=== PATIENT | male | born 1960 | race Caucasian/White ===

== ENCOUNTER 2019-06-23 00:07 | Day surgery (SDC) | payer OTHER, SELFPAY ==
[2019-06-22 09:00] VITALS: BMI 34.3
--- NOTE | 2019-06-23 07:18 | WPDANESEPPF ---
Anes - Initial Pre Proc Eval Procedure: Operation Date: 06/23/19 08:30 Proposed Procedures p Screening Colonoscopy - Edward Castillo MD Date/Time: 06/23/19 07:18 Surgeon: Edward Castillo MD Pre Op Diagnosis: Neoplasm Screening Patient Data Age: 59 Gender: M Height: 5 ft 11 in Weight: 111.8 kg Allergies Allergy/AdvReac Type Severity Reaction Status Date / Time poison jordi extract Allergy RASH Verified 06/23/19 07:17 Home Medications Medication Instructions Recorded Confirmed Type aspirin 81 mg tablet,delayed 81 mg PO DAILY 05/07/19 06/22/19 History release atorvastatin 20 mg tablet 20 mg PO DAILY 05/07/19 06/22/19 History irbesartan 150 mg tablet 150 mg PO DAILY #90 tablet 05/07/19 06/22/19 Rx sildenafil 100 mg tablet See Rx Instructions PO DAILY PRN 05/07/19 06/22/19 History cholecalciferol (vitamin D3) 25 mcg PO DAILY 06/22/19 06/22/19 History [Vitamin D3] lactobacillus combination no.8 3,000 mmu cells PO DAILY 06/22/19 06/22/19 History [Adult Probiotic] mecobalamin (vitamin B12) 1,000 mcg PO DAILY 06/22/19 06/22/19 History Patient hx anesthesia problems: none Family hx anesthesia problems: none PMFSH Past Medical History Medical History Coronary artery calcification seen on CAT scan Elbow dislocation (~1981) Encounter for prostate cancer screening Encounter for wellness examination in adult Essential (primary) hypertension Hypertension Male erectile dysfunction, unspecified Mixed hyperlipidemia Plantar wart, right foot Polyp of colon Vitamin B12 deficiency anemia Family History Family History Mother , 76 years old Cancer Father , 96 years old Heart disease Grandparent , 88 years old No problems noted. Grandparent , 84 years old Cancer Grandparent , 80 years old No problems noted. Grandparent , 58 years old Heart disease Sibling , 73 years old Cancer Social History Social History Smoking status: Never smoker Alcohol intake: current Substance use: never Substance use type: does not use Anes - Eval Final PreProcedure Day of Procedure 06/23/19 07:18 Patient weight: obese Heart: regular rate and rhythm Lungs: clear to auscultation Airway: Mallampati scale class II Neurological: alert and oriented Last oral intake: >/= 8 hours ASA classification: III Emergent: no Anesthetic plan: proceed Anesthesia type and monitoring: general GIVS and standard monitoring Informed Consent: The patient's anesthetic plan and its attendant risks and benefits were discussed with the patient/family/POA. Questions were solicited and answers provided to the satisfaction of the patient/family/POA.
[2019-06-23 07:19] VITALS: BP 153/83; PULSE 71; RESP 16; TEMP 36.5; O2SAT 98
[2019-06-23] MEDS: LACTATED RINGERS 1,000 ML 150 ML IV CONT (07:25)
--- NOTE | 2019-06-23 08:29 | PM.HPGS ---
History of Present Illness History of Present Illness Consent: Risks, benefits, and alternatives have been discussed and questions answered. Patient agrees to proceed with procedure. Chief complaint: Neoplasm Screening Narrative: Pavel Leung is a 59 year old male for screening colonoscopy, 5 years ago had polyps Review of Systems Constitutional: Constitutional: Denies headache(s) and Denies weakness Eyes: Eyes: Denies blurry vision ENT: Reports Normal hearing present, Denies headache(s) and Denies neck pain Cardiovascular: Cardiovascular: Denies chest pain and Denies dyspnea Respiratory: Respiratory: Denies dyspnea Gastrointestinal: Gastrointestinal: Reports no additional gastrointestinal complaints Genitourinary: Genitourinary: Denies dysuria Musculoskeletal: Musculoskeletal: Denies neck pain Integumentary/Breasts: Skin/Breast: Denies dry skin Neurologic: Reports Normal hearing present, Denies headache(s) and Denies weakness Psychiatric: Psychiatric: Denies anxiety Endocrine: Endocrine: Denies change in body appearance Hematologic/Lymphatic: Hematologic/Lymphatic: Denies easy bleeding Allergic/Immunologic: Allergic/Immunologic: Denies urticaria PMFSH Past Medical History Medical History Coronary artery calcification seen on CAT scan Elbow dislocation (~1981) Encounter for prostate cancer screening Encounter for wellness examination in adult Essential (primary) hypertension Hypertension Male erectile dysfunction, unspecified Mixed hyperlipidemia Plantar wart, right foot Polyp of colon Vitamin B12 deficiency anemia Family History Family History Mother , 76 years old Cancer Father , 96 years old Heart disease Grandparent , 88 years old No problems noted. Grandparent , 84 years old Cancer Grandparent , 80 years old No problems noted. Grandparent , 58 years old Heart disease Sibling , 73 years old Cancer Social History Social History Smoking status: Never smoker Alcohol intake: current Substance use: never Substance use type: does not use Meds Home Medications and Allergies Home Medications Medication Instructions Recorded Confirmed Type aspirin 81 mg tablet,delayed 81 mg PO DAILY 05/07/19 06/23/19 History release atorvastatin 20 mg tablet 20 mg PO DAILY 05/07/19 06/23/19 History irbesartan 150 mg tablet 150 mg PO DAILY #90 tablet 05/07/19 06/23/19 Rx sildenafil 100 mg tablet See Rx Instructions PO DAILY PRN 05/07/19 06/23/19 History cholecalciferol (vitamin D3) 25 mcg PO DAILY 06/22/19 06/23/19 History [Vitamin D3] lactobacillus combination no.8 3,000 mmu cells PO DAILY 06/22/19 06/23/19 History [Adult Probiotic] mecobalamin (vitamin B12) 1,000 mcg PO DAILY 06/22/19 06/23/19 History Allergies Allergy/AdvReac Type Severity Reaction Status Date / Time poison jordi extract Allergy RASH Verified 06/23/19 07:17 Vital Signs Vital Signs - 24 hr 06/23/19 07:19 Temperature 97.7 F Pulse Rate 71 Respiratory Rate 16 Blood Pressure 153/83 H Pulse Oximetry 98 Exam Const: General: comfortable and no acute distress HENMT: General nose exam: Normal nares present Eyes: General: appearance normal, both eyes and all related structures Neck: Neck: no JVD Resp: Auscultation: clear to auscultation bilaterally Cardio: Rate: regular rate Rhythm: regular rhythm GI: Inspection: non-distended GI Palp: Yes Soft to palpation Skin: General skin exam: normal color Neuro: General: gait normal Speech: normal speech Extrem: General: normal to inspection Psych: Mental Status: mental status grossly normal Assessment and Plan Assessment and plan (1) Polyp of colon: Code(s): K63.5 -
[2019-06-23 09:08] VITALS: BP 100/58; PULSE 60; RESP 18; O2SAT 98
[2019-06-23 09:18] VITALS: BP 122/62; PULSE 59; RESP 22; O2SAT 100
[2019-06-23 09:28] VITALS: BP 122/74; PULSE 56; RESP 20; O2SAT 100
== END 2019-06-23 09:40 | disposition home or self-care (01) ==
PROVIDERS: PCP Family Medicine; Visit Provider Internal Medicine Gastroenterology
PROC: 0DJD8ZZ Inspection of Lower Intestinal Tract, Via Natural or Artificial Opening Endoscopic (ICD-10-PCS; CPT 45378; principal; 2019-06-23 08:30)
DX: Z12.11 Encounter for screening for malignant neoplasm of colon (principal); K63.5 Polyp of colon; K64.8 Other hemorrhoids; I10 Essential (primary) hypertension; E78.5 Hyperlipidemia, unspecified; D51.3 Other dietary vitamin B12 deficiency anemia; N52.9 Male erectile dysfunction, unspecified; Z79.82 Long term (current) use of aspirin; E66.9 Obesity, unspecified; Z68.34 Body mass index [BMI] 34.0-34.9, adult
CPT/HCPCS: 45385; 45381; 88305; J2704; J7120

== ENCOUNTER 2020-02-24 07:30 | Outpatient (RCR) | payer OTHER, SELFPAY ==
[2020-01-22 15:25] VITALS: BP 142/62; PULSE 60; RESP 14; TEMP 36.7; O2SAT 99
[2020-01-22 15:26] VITALS: PULSE 60
--- NOTE | 2020-02-03 09:18 | PCCPR ---
Absent-OOT for work
--- NOTE | 2020-02-25 07:49 | PCCPR ---
Rocio Ricardo called states unable to make it today due to work.
--- NOTE | 2020-03-02 11:23 | PCCPR ---
Spoke with Pavel this morning. He had a doctors appt yesterday and patient states Dr. Joyce has ok'd him to go ahead and discharge from the program and continue exercise at home.
== END 2020-03-02 11:26 | disposition home or self-care (01) ==
LOC: ANHCPREHAB 07:30
PROVIDERS: PCP Family Medicine; Visit Provider Internal Medicine Cardiovascular Disease
DX: Z95.5 Presence of coronary angioplasty implant and graft (principal)
CPT/HCPCS: 93798

== ENCOUNTER → 2020-10-31 11:18 | Outpatient (CLI) | payer OTHER, SELFPAY ==
--- NOTE | ~2020-10-31 | XR_ITS ---
XR elbow RT min 3V DATE: 10/31/2020 11:35 INDICATION: Right elbow pain TECHNIQUE: 4 views COMPARISON: None FINDINGS: Posterior soft tissue swelling is noted. Chronic bony ossicles are noted along the medial e picondyles. No recent fracture or dislocation or joint effusion. No periosteal reaction or bone destruction. IMPRESSION: Posterior soft tissue swelling; no acute bony abnormality or joint effusion Reviewed, dictated and finalized at location A.
== END ==
PROVIDERS: PCP Nurse Practitioner Family; Visit Provider Nurse Practitioner Family
DX: M25.521 Pain in right elbow (principal); M79.89 Other specified soft tissue disorders
CPT/HCPCS: 73080

== ENCOUNTER 2022-10-01 07:06 | Day surgery (SDC) | payer OTHER, SELFPAY ==
[2022-09-11 09:39] VITALS: BMI 36.5
[2022-09-14 11:15] VITALS: BMI 33.5
--- NOTE | 2022-10-01 06:56 | WPDANESEPPF ---
Anes - Initial Pre Proc Eval Procedure: Operation Date: 10/01/22 09:00 Proposed Procedures p Diagnostic Colonoscopy - Edward Castillo MD Date/Time: 10/01/22 06:56 Surgeon: Edward Castillo MD Pre Op Diagnosis: Colon Polyp Patient Data Age: 62 Gender: M Height: 1.8 m Weight: 109 kg Allergies Allergy/AdvReac Type Severity Reaction Status Date / Time No Known Allergies Allergy Verified 10/01/22 10:18 Home Medications Medication Instructions Recorded Confirmed Type aspirin 81 mg tablet,delayed 81 mg PO DAILY 05/07/19 10/01/22 History release (Adult Low Dose Aspirin) lactobacillus combination no.8 3 3,000 mmu cells PO DAILY 06/22/19 10/01/22 History billion cell capsule (Adult Probiotic) cholecalciferol (vitamin D3) 25 1,000 unit PO DAILY 05/12/20 10/01/22 History mcg (1,000 unit) capsule (Vitamin D3) ezetimibe 10 mg tablet 10 mg PO DAILY 05/12/20 10/01/22 History irbesartan 300 mg tablet 300 mg PO DAILY 05/12/20 10/01/22 History metoprolol succinate 25 mg 25 mg PO DAILY 05/12/20 10/01/22 History tablet,extended release 24 hr rosuvastatin 40 mg tablet 40 mg PO DAILY 05/12/20 10/01/22 History clopidogrel 75 mg tablet 75 mg PO DAILY 07/31/22 10/01/22 History fluticasone propionate 50 1 spray intranasal Q12H #16 grams 07/31/22 10/01/22 Rx mcg/actuation nasal spray,suspension (Flonase Allergy Relief) sildenafil 100 mg tablet See Rx Instructions PO DAILY PRN 09/24/22 10/01/22 Rx Erectile Dysfunction #30 tabs Patient hx anesthesia problems: none Family hx anesthesia problems: none Results Review: All pre-operative results and documents have been reviewed as part of the pre-operative evaluation. 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 BMI 35.0-35.9,adult Candidiasis Chronic left shoulder pain Coronary artery calcification seen on CAT scan COVID-19 (~03/29/20) positive antibody test 05/16/2020 Elbow dislocation (~1981) Encounter for prostate cancer screening Encounter for screening for other viral diseases Encounter for wellness examination in adult Essential (primary) hypertension Eustachian tube dysfunction Herpes zoster (08/03/21) right T1 dermatome Hypertension Hypogonadism male Male erectile dysfunction, unspecified Mixed hyperlipidemia Obesity (BMI 30-39.9) Olecranon bursitis, right elbow Plantar wart, right foot Polyp of colon (06/23/19) 12 x 15 mm sessile serrated polyp of the cecum on 06/23/[address] Chavez Vitamin B12 deficiency anemia Vitamin D insufficiency Family History Family History Mother , 76 years old Cancer Father , 96 years old Heart disease Hypertension Grandparent , 88 years old No problems noted. Grandparent , 84 years old Cancer Grandparent , 80 years old No problems noted. Grandparent , 58 years old Heart disease Sibling , 73 years old Cancer Social History Social History Smoking status: Never smoker Alcohol intake: current Drinks per week: 3 Alcohol use details: varies Substance use: never Substance use type: does not use Lack of Transportation: No Lack of Food: Never True Current Housing: I Have Housing Concerned About Future Housing: No Difficulty Paying Gas/Electric Bills: No Difficulty Paying for Meds: No Currently Unemployed: No Education: Bachelor's Degree Difficulty w/ Childcare or Family Care: No Living arrangements: with family Occupation/Education: occupation Additional occupation/education comments: [employer]
[2022-10-01 10:19] VITALS: BP 135/81; PULSE 68; RESP 20; TEMP 36.6; O2SAT 99
[2022-10-01] MEDS: LACTATED RINGERS 1,000 ML 150 ML IV CONT (10:36)
--- NOTE | 2022-10-01 10:37 | PM.HPGS ---
History of Present Illness History of Present Illness Consent: Risks, benefits, and alternatives have been discussed and questions answered. Patient agrees to proceed with procedure. Chief complaint: Colon Polyp Narrative: Pavel Leung is a 62 year old male with large polyp removed in 2019 Review of Systems Constitutional: Constitutional: Denies headache(s) and Denies weakness Eyes: Eyes: Denies blurry vision ENT: Reports Normal hearing present, Denies headache(s) and Denies neck pain Cardiovascular: Cardiovascular: Denies chest pain and Denies dyspnea Respiratory: Respiratory: Denies dyspnea Gastrointestinal: Gastrointestinal: Reports no additional gastrointestinal complaints Genitourinary: Genitourinary: Denies dysuria Musculoskeletal: Musculoskeletal: Denies neck pain Integumentary/Breasts: Skin/Breast: Denies dry skin Neurologic: Reports Normal hearing present, Denies headache(s) and Denies weakness Psychiatric: Psychiatric: Denies anxiety Endocrine: Endocrine: Denies change in body appearance Hematologic/Lymphatic: Hematologic/Lymphatic: Denies easy bleeding Allergic/Immunologic: Allergic/Immunologic: Denies urticaria PMF Past Medical History Medical History (Updated 10/01/22 @ 10:37 by Edward Castillo MD) Abnormal fasting glucose Acute thoracic back pain (~07/18/21) Adenomatous colon 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 BMI 35.0-35.9,adult Candidiasis Chronic left shoulder pain Coronary artery calcification seen on CAT scan COVID-19 (~03/29/20) positive antibody test 05/16/2020 Elbow dislocation (~1981) Encounter for prostate cancer screening Encounter for screening for other viral diseases Encounter for wellness examination in adult Essential (primary) hypertension Eustachian tube dysfunction Herpes zoster (08/03/21) right T1 dermatome Hypertension Hypogonadism male Male erectile dysfunction, unspecified Mixed hyperlipidemia Obesity (BMI 30-39.9) Olecranon bursitis, right elbow Plantar wart, right foot Polyp of colon (06/23/19) 12 x 15 mm sessile serrated polyp of the cecum on 06/23/[address] Chavez Vitamin B12 deficiency anemia Vitamin D insufficiency Family History Family History Mother , 76 years old Cancer Father , 96 years old Heart disease Hypertension Grandparent , 88 years old No problems noted. Grandparent , 84 years old Cancer Grandparent , 80 years old No problems noted. Grandparent , 58 years old Heart disease Sibling , 73 years old Cancer Social History Social History Smoking status: Never smoker Alcohol intake: current Drinks per week: 3 Alcohol use details: varies Substance use: never Substance use type: does not use Lack of Transportation: No Lack of Food: Never True Current Housing: I Have Housing Concerned About Future Housing: No Difficulty Paying Gas/Electric Bills: No Difficulty Paying for Meds: No Currently Unemployed: No Education: Bachelor's Degree Difficulty w/ Childcare or Family Care: No Living arrangements: with family Occupation/Education: occupation Additional occupation/education comments: [employer] Gender identity (if verbalized by the patient): Male Spiritual care concerns: No Meds Home Medications and Allergies Home Medications Medication Instructions Recorded Confirmed Type aspirin 81 mg tablet,delayed 81 mg PO DAILY 05/07/19 10/01/22 History release (Adult Low Dose Aspirin) lactobacillus combination no.8 3 3,000 mmu cells PO DAILY 06/22/19 10/01/22 History billion cell capsule (Adult Probiotic) cholecalciferol (vitamin D3) 25 1,000 unit PO DAILY 05/12/20 10/01/22 History mcg (1,000 unit) capsule (Vi
[2022-10-01 11:05] VITALS: BP 131/97; PULSE 73; RESP 16; O2SAT 99
--- NOTE | 2022-10-01 11:11 | WPDANESPN ---
Anes - Prog Note Post-Op Date/Time: 10/01/22 11:11 Cardiovascular status: normal Respiratory status: normal Airway patency: baseline Mental status: baseline Post-Op hydration status: normal Vital Signs: Last Vital Signs Temp 36.6 C 10/01/22 10:19 Pulse 68 10/01/22 10:19 Resp 20 10/01/22 10:19 BP 135/81 10/01/22 10:19 Pulse Ox 99 10/01/22 10:19 O2 Del Method Room Air 10/01/22 10:19 Pain Score (VAS): 0 I/O: Intake & Output 09/30/22 10/01/22 10/01/22 23:59 07:59 15:59 Intake Total 400 Balance 400 Post-procedural complaints: none Patient Feedback: Patient satisfied with anesthetic care. Other Findings: Patient vital signs back to baseline. Patient denies nausea and vomiting. Patient's pain under control. Patient OK for discharge.
[2022-10-01 11:15] VITALS: BP 100/59; PULSE 70; RESP 18; O2SAT 97
[2022-10-01 11:24] VITALS: BP 114/61; PULSE 60; RESP 16; O2SAT 97
== END 2022-10-01 11:35 | disposition home or self-care (01) ==
PROVIDERS: PCP Family Medicine; Visit Provider Internal Medicine Gastroenterology
PROC: 0DJD8ZZ Inspection of Lower Intestinal Tract, Via Natural or Artificial Opening Endoscopic (ICD-10-PCS; CPT 45378; principal; 2022-10-01 09:00)
DX: Z86.010 Personal history of colon polyps (principal)
CPT/HCPCS: 45385

== ENCOUNTER 2022-10-01 08:00 | Outpatient (NON) | payer OTHER, SELFPAY | END 2022-10-01 08:01 | disposition home or self-care (01) | LOC: ANHLAB 10-02 08:55 | PROVIDERS: PCP Family Medicine; Visit Provider Internal Medicine Gastroenterology | DX: K63.5 Polyp of colon (principal) | CPT/HCPCS: 88305 ==

== ENCOUNTER → 2024-01-29 12:08 | Outpatient (CLI) | payer OTHER, SELFPAY ==
--- NOTE | ~2024-01-29 | XR_ITS ---
AP view of the pelvis and AP and lateral views of the right hip Clinical history: Pain Findings: No acute fracture or dislocation is seen. Osseous alignment is anatomic. Minimal degenerati ve change of both hip joints noted. Soft tissues are unremarkable. Impression: Minimal degenerative change of both hip joints. Reviewed, dictated and finalized at location . Impression: Minimal degenerative change of both hip joints.
== END ==
LOC: EXPTROY 12:10
PROVIDERS: PCP Family Medicine; Visit Provider Family Medicine
DX: M16.0 Bilateral primary osteoarthritis of hip (principal)
CPT/HCPCS: 73502

== ENCOUNTER 2024-03-26 09:18 | Outpatient (CLI) | payer OTHER, SELFPAY ==
[2024-04-16 14:20] VITALS: BMI 35.1
--- NOTE | 2024-04-16 14:20 | P.SLEEP_ITS ---
Sleep Study - Home Unattended Date of Study: 03/26/24 Ordering Provider: Dawit Deleon MD Interpreting Provider: Odilia Elizondo, DO Home Sleep Study Type: Watch PAT Height: 1.8 m Weight: 114.305 kg Body Mass Index: 35.1 Neck Circumference (inches): 17.5 [place]: 7 Reason for Sleep Study Daytime hypersomnia Sleep History The patient is a 64-year-old male that had a sleep study ordered by his primary care physician for evaluation of sleep apnea. The patient admits to excessive daytime sleepiness and difficulty falling asleep. He denies snoring. He denies interruptions in breathing while asleep. He denies choking or gasping at night. He denies having trouble breathing on his. He denies morning headaches. He denies having a dry or sore mouth/ throat in morning. He denies nocturnal heartburn. He denies nocturia. He does have difficulty staying asleep during the night. He denies having difficulty returning to sleep if he wakes up throughout the night. He denies any hypnotic or sedative use. He denies feeling anxious about sleep. He does feel tired or sleepy during the day. He does feel tired in the morning. He denies having the urge to fall asleep during the day. He denies feeling down others while driving. He denies sleep paralysis, cataplexy and hypnagogic / hypnopompic hallucinations and he does clench her grinds his teeth at night. He denies kicking or jerking his legs excessively. He does restless feeling in his legs that does not get worse with rest but it does get better with activity. He denies having the urge to move his. This restless feeling is predominantly present at night time but it does not cause a disturbance in his sleep. He goes to bed at 11:00 p.m. on work days. It takes him 30 minutes to fall asleep on work days and 15 minutes on it stays off. He typically gets 6 hours of sleep his work days and 7 hours on the day. His sleep is somewhat restorative on his days. He denies taking any planned naps. He denies dream enactment behavior. He denies sleep walking. He consumes 1 to 2 cups of caffeinated beverage per day. He consumes 2 glasses 7 alcoholic beverage 3-4 nights week. He denies tobacco use. 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 Chronic pain of right hip x-ray of the right hip and pelvis reveals mild degenerative changes of both hips on 01/29/2024. Adenomatous colon polyp Serrated sessile polyp 10/01/2022. Eustachian tube dysfunction Obesity (BMI 30-39.9) Herpes zoster (08/03/21) right T1 dermatome Acute thoracic back pain (~07/18/21) Candidiasis BMI 35.0-35.9,adult Olecranon bursitis, right elbow COVID-19 (~03/29/20) positive antibody test 05/16/2020 Encounter for screening for other viral diseases Atherosclerotic heart disease of [place] coronary artery without angina pectoris drug-eluting stent in the LAD Hypogonadism male testosterone 273 with free testosterone 58.7 on 01/29/2024. Abnormal fasting glucose Fasting glucose 94 with hemoglobin A1c 6.1, urine microalbumin ratio 21, GFR 98 on 01/29/2024. Vitamin D insufficiency Level normal at 37 on 01/29/2024. Chronic left shoulder pain Vitamin B12 deficiency anemia Level normal at 494 on 01/29/2024. Encounter for prostate cancer screening PSA 0.43 on 02/02/2022. PSA 0.48 on 01/29/2024. Encounter for wellness examination in adult Plantar wart, right foot Coronary artery calcification seen on CAT scan Male erectile dysfunction, unspecified Polyp of colon (06/23/19) 12 x 15 mm sessile serrated polyp of the cecum on 06/23/[address] Chavez.Serrated sessile polyp 10/01/2022. Mixed hyperlipidemia Essential (primary) hypertension Elbow dislocation (~1981) Hypertension Family History Family History Mother , 76 years old Cancer Father , 96 years old Heart disease Hypertension Grandparent , 88 years old No problems noted. Grandparent , 84 years old Cancer Grandparent , 80 years old No problems noted. Grandparent , 58 years old Heart disease Sibling , 73 years old Cancer Social History Social History Smoking status: Never smoker Alcohol intake: current Drinks per week: 3 Alcohol use details: varies Substance use: never Substance use type: does not use Lack of Transportation: No Lack of Food: Never True Current Housing: I Have Housing Concerned About Future Housing: No Difficulty Paying Gas/Electric Bills: No Difficulty Paying for Meds: No Currently Unemployed: No Education: Bachelor's Degree Difficulty w/ Childcare or Family Care: No Living arrangements: with family Occupation/Education: occupation Additional occupation/education comments: [employer] Gender identity (if verbalized by the patient): Male Spiritual care concerns: No Medications Home Medications ?Medication ?Instructions ?Recorded ?Confirmed ?Type aspirin 81 mg tablet,delayed 81 mg PO DAILY 05/07/19 10/01/22 History release (Adult Low Dose Aspirin) cholecalciferol (vitamin D3) 25 1,000 unit PO DAILY 05/12/20 10/01/22 History mcg (1,000 unit) capsule (Vitamin D3) ezetimibe 10 mg tablet 10 mg PO DAILY 05/12/20 10/01/22 History irbesartan 300 mg tablet 300 mg PO DAILY 05/12/20 10/01/22 History metoprolol succinate 25 mg 25 mg PO DAILY 05/12/20 10/01/22 History tablet,extended release 24 hr rosuvastatin 40 mg tablet 40 mg PO DAILY 05/12/20 10/01/22 History clopidogrel 75 mg tablet 75 mg PO DAILY 07/31/22 10/01/22 History fluticasone propionate 50 1 spray intranasal Q12H #16 grams 07/31/22 10/01/22 Rx mcg/actuation nasal spray,suspension (Flonase Allergy Relief) sildenafil 100 mg tablet See Rx Instructions PO DAILY PRN 09/24/22 10/01/22 Rx Erectile Dysfunction #30 tabs cetirizine 10 mg tablet (Zyrtec) 10 mg PO DAILY PRN allergy symptoms 01/29/24 01/29/24 History Sleep Procedure The sleep study was completed using [employer] a technically adequate device with seven channels: peripheral arterial tone, actigraphy, body position, snore, respiratory movement, pulse oximetry, sleep staging, and heart rate. Prior to using the device, the patient received verbal and written instructions for its application and was provided with the help desk phone number for additional telephonic instruction with 24-hour availability of qualified personnel to answer questions. The study was scored using AASM guidelines. Sleep Architecture The total recording time is 9 hrs, 38 min. The total sleep time is 8 hrs, 1 min. Sleep latency is 19 minutes. REM latency is 75 minutes. The patient had 19 episodes of waking. Sleep architecture shows 9.9% deep sleep, 63.2% light sleep, and (as % Total Sleep Time) showed NREM (Light 63.2%; Deep 9.9%), and a 26.9% stage REM. The patient spent 55.5% of total sleep time in the supine position. Sleep efficiency was 83.22. Respiratory Analysis The overall AHI (pAHI 3%:) is 13.7. The central AHI is 1.1. The AHI was 10.6 in NREM and 22.1 in REM sleep. The AHI was 17.8 in Supine and 8.8 in Non-supine sleep. Percent of Raoul Anguiano respirations is 0.0. Oximetry Data The oxygen desaturation index (ROSAURA 4%:) is 5.5. The mean saturation is 95%, and the lowest saturation is 88%. Time spent with saturation < 88% is 0.2 minutes. Snoring Profile Snoring average intensity is 45 dB. The patient snored above 45 decibels for 147.0 minutes, 30.6% of sleep time. Cardiac Profile The average pulse rate is 57 beats per minutes. The lowest pulse rate is 40 bpm. The highest pulse rate reported is 86 bpm. Atrial fibrillation was not detected. Premature beats occur <0.1 per minute. Assessment and Plan Assessment and Plan (1) [place] (obstructive sleep apnea): Code(s): G47.33 - Obstructive sleep apnea (adult) (pediatric) Status: Acute Assessment and Plan: The patient had an overall AHI of 13.7 with desaturation down to 88%. This is consistent with mild sleep apnea. Due to the patient's hypertension, he qualifies for treatment. I recommend that the patient be prescribed Resmed AutoPAP 5-15 cm H2O, CPAP mask/filters/tubing and heated humidity. This should be used with all episodes of sleep.? Compliance should be reviewed within 31-90 days of starting therapy for usage greater than 4 hours per night greater than 70% of the nights. The patient should be asked about symptoms such as?excessive daytime sleepiness, quality of sleep, decreased nocturia, increased?mental functioning such as memory, mood, and concentration. Data The data obtained during this sleep study is adequate for interpretation. Certification This sleep study has been reviewed by a board certified sleep medicine physician.
== END 2024-03-27 15:18 | disposition home or self-care (01) ==
PROVIDERS: PCP Family Medicine; Visit Provider Family Medicine
DX: G47.33 Obstructive sleep apnea (adult) (pediatric) (principal); G47.10 Hypersomnia, unspecified; G47.8 Other sleep disorders
CPT/HCPCS: 95800